=== PATIENT | female | born 1980 | race American Indian/Alaskan Native ===

== ENCOUNTER 2016-09-05 15:12 | Emergency (ER) | payer MEDICAID, OTHER ==
[2016-09-05 15:53] VITALS: BP 142/108
== END 2016-09-06 00:15 | disposition left against medical advice (07) ==
LOC: ED 15:12
DX: M79.89 Other specified soft tissue disorders (principal); Z53.21 Procedure and treatment not carried out due to patient leaving prior to being seen by health care provider